=== PATIENT | male | born 1955 | race Caucasian/White ===

== ENCOUNTER 2023-12-11 13:42 | Inpatient (IN) | payer OTHER ==
[2023-12-11 14:07] VITALS: BMI 26.5
[2023-12-11] MEDS ORDERED: NALOXONE HCL (KLOXXADO) 8 MG SPRAY NS PRN (14:32)
[2023-12-11] MEDS ORDERED: ONDANSETRON *ODT* 4 MG TABLET SL PRN (14:32)
[2023-12-11] MEDS ORDERED: MAGNESIUM HYDROX 2400MG/30ML ORAL SUSPENSION 30 ML CUP PO PRN (14:32)
[2023-12-11] MEDS ORDERED: IBUPROFEN 600 MG TABLET (FP) PO PRN (14:32)
[2023-12-11] MEDS ORDERED: NALOXONE HCL 0.4 MG/ML VIAL IM PRN (14:32)
[2023-12-11] MEDS ORDERED: BENZONATATE 200 MG CAPSULE PO PRN (14:32)
[2023-12-11] MEDS ORDERED: guaiFENesin 600 MG TABLET.ER (FP) PO PRN (14:32)
[2023-12-11] MEDS ORDERED: ACETAMINOPHEN 325 MG TABLET (FP) PO PRN (14:32)
[2023-12-11] MEDS ORDERED: BENZOCAINE/MENTHOL (CHLORASEPTIC ) LOZENGE MM PRN (14:32)
[2023-12-11] MEDS ORDERED: MAG HYDROX/AL HYDROX/SIMETH 30 ML UNIT-DOSE CUP PO PRN (14:32)
[2023-12-11] MEDS ORDERED: POLYETHYLENE GLYCOL (HEALTHYLAX) 3350 17 GM PACKET PO PRN (14:32)
[2023-12-11] MEDS ORDERED: IBUPROFEN 400 MG TABLET (FP) PO PRN (14:32)
[2023-12-11] MEDS ORDERED: LORazepam 1 MG TABLET PO PRN (14:32)
[2023-12-11] MEDS ORDERED: PRENATAL VITAMINS W/ FOLIC ACID TABLET (FP) PO ONE (16:41)
[2023-12-11] MEDS: CARVEDILOL 25 MG TABLET (FP) PO ONE (16:44)
[2023-12-11] MEDS: PRENATAL VITAMINS W/ FOLIC ACID TABLET (FP) PO SCH (16:44)
[2023-12-11] MEDS ORDERED: ASPIRIN 81 MG CHEWABLE TABLETS ONE (16:48)
[2023-12-11] MEDS: ASPIRIN COATED 81 MG TABLET.EC PO SCH (16:49)
[2023-12-11] MEDS: MELATONIN 5 MG TABLETS PO SCH (22:24)
[2023-12-11] MEDS: THIAMINE HCL 100 MG TABLET (FP) PO SCH (22:24)
[2023-12-11] MEDS: BISMUTH SUBSALICYLATE 524 MG/30 ML PO PRN (22:25)
[2023-12-11] MEDS: LORazepam 2 MG TABLET PO SCH (22:36)
[2023-12-12 14:12] LABS: HEMATOCRIT 33.7 % (35.4-49); HEMOGLOBIN 10.8 GM/dL (11.7-16.9); MCH 28.3 pg (25.7-33.7); MCHC 32.1 g/dl (32.0-35.9); MEAN PLT VOLUME 8.5 fl (7.5-11.1); PLATELET COUNT 323 10^3/uL (134-434); RBC 3.83 M/mm3 (4.00-5.60); RDW 15.1 % (11.9-15.9); WHITE BLOOD COUNT 5.8 K/mm3 (4.0-10.0)
[2023-12-12 14:16] LABS: CHLORIDE 102 mmol/L (98-107); POTASSIUM 3.7 mmol/L (3.5-5.1); SODIUM 135 mmol/L (136-145)
[2023-12-12 14:19] LABS: ALBUMIN 3.2 g/dl (3.4-5.0); ANION GAP 3 mmol/L (4-13); BLOOD UREA NITROGEN 23.3 mg/dL (7-18); CALCIUM 9.1 mg/dL (8.5-10.1); CO2 30 mmol/L (21-32)
[2023-12-12 14:22] LABS: CREATININE 0.6 mg/dL (0.55-1.3); SGOT/AST 30 U/L (15-37); SGPT/ALT 28 U/L (13-61)
[2023-12-12 14:24] LABS: BILIRUBIN,TOTAL 0.7 mg/dL (0.2-1)
[2023-12-12 14:25] LABS: ALK PHOS 59 U/L (45-117)
[2023-12-12 14:30] LABS: GLUCOSE,RANDOM 83 mg/dL (74-106)
[2023-12-12] MEDS: MIRTAZAPINE 15 MG TABLET (FP) PO SCH (22:23)
[2023-12-13] MEDS: LORazepam 1 MG TABLET PO SCH (05:40)
[2023-12-13] MEDS: LACTULOSE 20 GM/30 ML UDC (FOR ORAL USE ONLY) PO PRN (14:41)
[2023-12-13] MEDS: DICYCLOMINE HCL 10 MG CAPSULE PO PRN (17:38)
[2023-12-14] MEDS ORDERED: LORazepam 0.5 MG TABLET PO PRN
[2023-12-14] MEDS: LORazepam 0.5 MG TABLET PO SCH (05:49)
[2023-12-14] MEDS: LOPERAMIDE HCL 2 MG CAPSULE PO PRN (05:52)
[2023-12-14] MEDS: hydrOXYzine PAMOATE 25 MG CAPSULE (FP) PO PRN (21:04)
[2023-12-15] MEDS: LORazepam 0.5 MG TABLET PO ONE (05:46)
[2023-12-15] MEDS: METHOCARBAMOL 500 MG TABLET PO PRN (05:47)
[2023-12-15 06:11] VITALS: TEMP 97.7
[2023-12-15 09:13] VITALS: RESP 16
[2023-12-15 12:52] VITALS: BP 148/72; PULSE 73
== END 2023-12-15 12:58 | disposition home or self-care (01) | DRG 897 ==
LOC: YASAS 13:42 → Y3N 16:39
PROVIDERS: ADMIT Allergy & Immunology; ATTEND Surgery
PROC: HZ2ZZZZ Detoxification Services for Substance Abuse Treatment (ICD-10-PCS; principal; 2023-12-11)
DX: F10.230 Alcohol dependence with withdrawal, uncomplicated (principal); E72.20 Disorder of urea cycle metabolism, unspecified; F14.10 Cocaine abuse, uncomplicated; F31.9 Bipolar disorder, unspecified; F10.282 Alcohol dependence with alcohol-induced sleep disorder; I10 Essential (primary) hypertension; K21.9 Gastro-esophageal reflux disease without esophagitis; R79.89 Other specified abnormal findings of blood chemistry; R94.31 Abnormal electrocardiogram [ECG] [EKG]; Z88.0 Allergy status to penicillin
CPT/HCPCS: 36415; 80053; 80307; 82140; 84520; 85027; 86780; 87811; 93005; 93010

== ENCOUNTER 2023-12-15 13:03 | Inpatient (IN) | payer OTHER ==
[2023-12-15] MEDS ORDERED: METHOCARBAMOL 500 MG TABLET PO PRN (15:07)
[2023-12-15] MEDS ORDERED: guaiFENesin 600 MG TABLET.ER (FP) PO PRN (15:07)
[2023-12-15] MEDS ORDERED: ACETAMINOPHEN 325 MG TABLET (FP) PO PRN (15:07)
[2023-12-15] MEDS ORDERED: POLYETHYLENE GLYCOL (HEALTHYLAX) 3350 17 GM PACKET PO PRN (15:07)
[2023-12-15] MEDS ORDERED: MAGNESIUM HYDROX 2400MG/30ML ORAL SUSPENSION 30 ML CUP PO PRN (15:07)
[2023-12-15] MEDS ORDERED: IBUPROFEN 600 MG TABLET (FP) PO PRN (15:07)
[2023-12-15] MEDS ORDERED: IBUPROFEN 400 MG TABLET (FP) PO PRN (15:07)
[2023-12-15] MEDS ORDERED: BENZONATATE 200 MG CAPSULE PO PRN (15:07)
[2023-12-15] MEDS ORDERED: NALOXONE HCL 0.4 MG/ML VIAL IVPUSH PRN (15:07)
[2023-12-15] MEDS ORDERED: NALOXONE (NYS OPIOID OVERDOSE PROGRAM) 4 MG/0.1 ML SPRAY NS PRN (15:07)
[2023-12-15] MEDS ORDERED: BENZOCAINE/MENTHOL (CHLORASEPTIC ) LOZENGE MM PRN (15:07)
[2023-12-15] MEDS ORDERED: LOPERAMIDE HCL 2 MG CAPSULE PO PRN (15:07)
[2023-12-15] MEDS: MELATONIN 5 MG TABLETS PO SCH (21:13)
[2023-12-15] MEDS: THIAMINE 100 MG TABLET PO SCH (21:13)
[2023-12-15] MEDS: MIRTAZAPINE 15 MG TABLET (FP) PO SCH (21:13)
[2023-12-16] MEDS: hydrOXYzine PAMOATE 25 MG CAPSULE (FP) PO PRN (06:42)
[2023-12-16] MEDS ORDERED: LOSARTAN POTASSIUM 50 MG TABLET PO SCH (10:00)
[2023-12-16] MEDS: LOSARTAN POTASSIUM 50 MG TABLET PO SCH (10:21)
[2023-12-16] MEDS: PRENATAL VITAMINS W/ FOLIC ACID TABLET (FP) PO SCH (10:21)
[2023-12-16] MEDS: MAG HYDROX/AL HYDROX/SIMETH 30 ML UNIT-DOSE CUP PO PRN (21:08)
[2023-12-22] MEDS: PANTOPRAZOLE 40 MG TABLET PO SCH (11:51)
[2023-12-28 06:37] VITALS: RESP 16; TEMP 98
[2023-12-28 08:58] VITALS: BP 113/65; PULSE 88
== END 2023-12-28 10:14 | disposition home or self-care (01) | DRG 895 ==
LOC: YASAS 13:03 → Y3W 13:04
PROVIDERS: ADMIT Allergy & Immunology; ATTEND Psychiatry & Neurology Pain Medicine
PROC: HZ42ZZZ Group Counseling for Substance Abuse Treatment, Cognitive-Behavioral (ICD-10-PCS; principal; 2023-12-15)
DX: F10.20 Alcohol dependence, uncomplicated (principal); F10.282 Alcohol dependence with alcohol-induced sleep disorder; F32.A Depression, unspecified; I10 Essential (primary) hypertension; K21.9 Gastro-esophageal reflux disease without esophagitis; R74.8 Abnormal levels of other serum enzymes
CPT/HCPCS: 36415; 86803; 87522